=== PATIENT | male | born 1955 | race Caucasian/White ===

== ENCOUNTER 2016-11-12 11:39 | Outpatient (CLI) | payer OTHER ==
[2016-04-16 10:18] VITALS: O2SAT 94
== END 2016-11-12 11:40 | disposition home or self-care (01) | DRG 556 ==
LOC: CONVCARE 11:39
PROVIDERS: ATTEND Orthopaedic Surgery
DX: M25.512 Pain in left shoulder (principal); M25.522 Pain in left elbow
CPT/HCPCS: 70030; 73070

== ENCOUNTER 2018-09-10 12:45 | Day surgery (SDC) | payer OTHER ==
[2018-09-10] MEDS ORDERED: BUPIVACAINE HCL 0.25% MPF 30 ML SOL INFIL ONE (13:20)
[2018-09-10] MEDS ORDERED: DEXAMETHASONE SOD PHOS PF 10 MG/ML SOL IJ ONE (13:20)
[2018-09-10] MEDS ORDERED: SODIUM CHLORIDE 0.9% FLUSH 10 ML SOL IV ONE (13:25)
[2018-09-10] MEDS ORDERED: ONDANSETRON HCL 4 MG/2 ML SOL ONE (13:26)
[2018-09-10] MEDS: MIDAZOLAM 2 MG/2 ML SOL ONE ×2 (13:33→13:53)
[2018-09-10] MEDS: FENTANYL 100MCG/2ML SOL ONE ×2 (13:33→13:53)
[2018-09-10 14:16] VITALS: BP 134/71; PULSE 78; RESP 16; TEMP 98.2; O2SAT 95
== END 2018-09-10 14:30 | disposition home or self-care (01) | DRG 74 ==
LOC: SURG 12:45
PROVIDERS: ATTEND Nurse Anesthetist, Certified Registered
DX: M54.12 Radiculopathy, cervical region (principal)
CPT/HCPCS: J2250; J2405; J3010; J1100

== ENCOUNTER 2018-10-14 07:49 | Day surgery (SDC) | payer OTHER ==
[2018-10-14 08:30] VITALS: RESP 16
[2018-10-14] MEDS ORDERED: BUPIVACAINE HCL 0.25% MPF 30 ML SOL INFIL ONE (08:39)
[2018-10-14] MEDS ORDERED: SODIUM CHLORIDE 0.9% FLUSH 10 ML SOL IV ONE ×2 (08:39→08:53)
[2018-10-14] MEDS ORDERED: MIDAZOLAM 2 MG/2 ML SOL ONE (08:42)
[2018-10-14] MEDS ORDERED: ONDANSETRON HCL 4 MG/2 ML SOL ONE (08:42)
[2018-10-14] MEDS ORDERED: FENTANYL 100MCG/2ML SOL ONE (08:42)
[2018-10-14] MEDS: DEXAMETHASONE SOD PHOS PF 10 MG/ML SOL IJ ONE ×2 (08:57→09:00)
[2018-10-14 09:16] VITALS: BP 143/83; PULSE 64; TEMP 98.4; O2SAT 95
== END 2018-10-14 09:30 | disposition home or self-care (01) | DRG 74 ==
LOC: SURG 07:49
PROVIDERS: ATTEND Nurse Anesthetist, Certified Registered
DX: M54.12 Radiculopathy, cervical region (principal)
CPT/HCPCS: J2250; J2405; J3010; J1100

== ENCOUNTER 2018-11-19 10:02 | Day surgery (SDC) | payer OTHER ==
[2018-11-19] MEDS ORDERED: TRIAMCINOLONE ACETONIDE 40 MG/ML SUS ONE (10:41)
[2018-11-19] MEDS ORDERED: BUPIVACAINE HCL 0.25% MPF 30 ML SOL INFIL ONE (10:41)
[2018-11-19 10:56] VITALS: BP 120/63; PULSE 62; RESP 16; TEMP 99.4; O2SAT 95
== END 2018-11-19 10:58 | disposition home or self-care (01) | DRG 558 ==
LOC: SURG 10:02
PROVIDERS: ATTEND Nurse Anesthetist, Certified Registered
DX: M77.12 Lateral epicondylitis, left elbow (principal)
CPT/HCPCS: J3300